=== PATIENT | female | born 1955 | race Caucasian/White ===

== ENCOUNTER 2020-04-22 16:31 | Outpatient (RCR) | payer OTHER, SELFPAY ==
[2020-04-22] MEDS: COVID-19 VACC, MRNA(PFIZER)/PF 30 MCG/0.3 ML SYRINGE IM (18:36)
[2020-05-13] MEDS: COVID-19 VACC, MRNA(PFIZER)/PF 30 MCG/0.3 ML SYRINGE IM (18:25)
== END 2020-07-20 23:59 ==
LOC: IMMUN 16:31
PROVIDERS: PCP Nurse Practitioner Primary Care; Visit Provider Family Medicine
DX: Z23 Encounter for immunization (principal)
CPT/HCPCS: 0001A; 0002A; 91300

== ENCOUNTER → 2022-03-27 | Outpatient (CLI) | payer MEDICARE, SELFPAY ==
--- NOTE | 2022-03-27 10:30 | LES_PTH ---
PATIENT: MELLISSA GARSIA LOC: [facility] U#:[id number] AGE/SX: 66/F ROOM: RE03/27/[address]: Dr. Kenny Banuelos DDS : 1955 BED: DIS: 03/27/2022 SPEC #: [id number] RECD: 03/27/22 11:58 STATUS: MICHAEL ZEKE #: [id number] LARRY: 03/27/22 10:[address]: Kenny Banuelos DEPT: SURGICAL PATHOLOGY RECD BY: Kira Henao ENTERED: 03/27/22 12:18 SP TYPE: Lesion OTHR DR: Paula Cloud, [employer] ENGINEER-C Tissues: Skin of lip, NOS Procedures: Surgery Specimen Level IV HEADER OPERATION: Biopsy lower lip PRE-OP DIAGNOSIS: Probable fibroma TISSUE SUBMITTED: Lower lip MICROSCOPIC DIAGNOSIS Lesion of lower lip, biopsy: Consistent with fibroma. AM:laxmi 03/28/2022 MICROSCOPIC DESCRIPTION Slides are reviewed. GROSS DESCRIPTION Received in fixative is one container labeled with the patient's name and designated lip. The specimen consists of arriaga mucosal tissue measuring 0.4 x 0.4 x 0.2 cm. The entire specimen is submitted in one cassette. / SJ:laxmi 03/27/2022 TC:5 CPT: 03158
== END | disposition home or self-care (01) ==
LOC: LABSPEC 12:14
PROVIDERS: PCP Nurse Practitioner Primary Care; Referring Provider Dentist Oral and Maxillofacial Surgery; Visit Provider Dentist Oral and Maxillofacial Surgery
DX: D21.0 Benign neoplasm of connective and other soft tissue of head, face and neck (principal)
CPT/HCPCS: 88305